=== PATIENT | female | born 1995 | race Caucasian/White ===

== ENCOUNTER 2018-02-11 12:22 | Day surgery (SDC) | payer BC ==
[~2018-02-11] VITALS: Ht 157.5 cm; Wt 88.5 kg
[~2018-02-11 12:22] MED LIST: KELNOR 1-351 EACH PO
[2018-02-11 12:52] VITALS: BP 122/69
[2018-02-11] MEDS ORDERED: NORCO 5/3251 TABLET PO (16:06)
[2018-02-11 16:25] VITALS: BP 112/74
[2018-02-11 17:25] VITALS: BP 107/56
[2018-02-11 18:20] VITALS: BP 128/71
== END 2018-02-11 18:20 | disposition home or self-care (01) ==
LOC: SDC 12:22
PROVIDERS: Surgery
DX: K80.10 Calculus of gallbladder with chronic cholecystitis without obstruction (principal); K82.8 Other specified diseases of gallbladder; K66.0 Peritoneal adhesions (postprocedural) (postinfection); Z80.3 Family history of malignant neoplasm of breast; Z80.6 Family history of leukemia
CPT/HCPCS: 74300; 81025; 88304; C1769; J0131; J0330; J0690; J1100; J1170; J1885; J2250; J2405; J2710; J2765; Q0175; S0020